=== PATIENT | male | born 1945 | race Caucasian/White ===

== ENCOUNTER → 2017-05-02 | Outpatient (CLI) | payer OTHER ==
[2015-10-12 19:05] VITALS: BP 132/81
--- NOTE | 2017-05-02 12:37 | RAD ---
Examination: Cervical spine, three views History: Left arm weakness Findings: AP, lateral and open-mouth odontoid views demonstrate disc narrowing at several levels. The re is a prominent posterior osteophyte at C3-4. There is minimal anterior listhesis at C4-5-6. Extens johanny facet osteoarthritis is present. The odontoid appears normal. Impression: Degenerative disc disease and spondylosis especially C3-4. Minimal malalignment at levels described consistent with advanced degenerative facet arthropathy. No acute features demonstrated. Reported By:
== END ==
LOC: RAD 11:07
PROVIDERS: ATTEND Nurse Practitioner Family
DX: M50.31 Other cervical disc degeneration, high cervical region (principal)
CPT/HCPCS: 72040

== ENCOUNTER → 2017-05-16 | Outpatient (CLI) | payer OTHER ==
[2015-10-12 19:05] VITALS: BP 132/81
--- NOTE | 2017-05-16 11:51 | MRI ---
STUDY: MRI OF THE CERVICAL SPINE HISTORY: Cervical disc degeneration. Neck pain that radiates into right arm. Comparison: Cervical spine radiographs from May 02, 2017. Technique: An MRI of the cervical spine including sagittal T1, T2, and T2 STIR, axial T1, and T2 FSE images was performed using standard departmental protocol. Findings: Sagittal images: Visualized portions of the posterior fossa are within normal limits.The craniocervical junction is un remarkable.Vertebral body heights and alignment are within normal limits.Marrow signal is age-appropr iate.There is no evidence for fracture or significant bone marrow edema. There is multilevel degenera tive disc disease and chronic degenerative endplate change. There is no significant prevertebral soft tissue swelling. The surrounding paraspinal soft tissues are unremarkable. There is no evidence of c ord compression. No intrinsic signal abnormalities are identified in the spinal cord itself. Axial images: C2 -- C3: Normal. C3 -- C4: There is a posterior disc osteophyte complex and mild bilateral uncovertebral osteophyte fo rmation. This results in moderate spinal stenosis. There is mild right neural foraminal stenosis. Lef t neural foramen is adequate. C4 -- C5: There is a posterior disc osteophyte complex and mild bilateral uncovertebral osteophyte fo rmation. This results in mild central canal stenosis. The neural foramina are adequate. C5 -- C6: There is minimal disc osteophyte complex and bilateral uncovertebral osteophyte formation. The central canal and neural foramina are adequate. C6 -- C7: There is minimal disc osteophyte complex and bilateral uncovertebral osteophyte formation. The central canal and neural foramina are adequate. C7 -- T1: Normal. IMPRESSION: 1. Multilevel cervical spondylosis, most notable at C3/4. 2. Moderate spinal stenosis at C3/4. 3. Mild spinal stenosis at C4/5. Reported By:
== END | disposition home or self-care (01) ==
LOC: RAD 09:02
PROVIDERS: ATTEND Nurse Practitioner Family
DX: M50.30 Other cervical disc degeneration, unspecified cervical region (principal); M47.892 Other spondylosis, cervical region; M48.02 Spinal stenosis, cervical region
CPT/HCPCS: 72141

== ENCOUNTER → 2017-07-25 | Outpatient (CLI) | payer OTHER ==
[2015-10-12 19:05] VITALS: BP 132/81
--- NOTE | 2017-07-25 10:47 | RAD ---
Indication: Cough and shortness of breath Exam: PA and lateral Comparison: 05/14/2014 Findings: The heart is normal. The pulmonary vessels are normal. The lungs are mildly hyperinflated. No consolidation or effusion is seen. The bones are intact. Impression: Stable chronic changes with no acute abnormality seen. Reported By:
--- NOTE | 2017-07-25 10:49 | RAD ---
Indication: Back pain Exam: Thoracic spine series Technique: AP and lateral views Findings: There is mild disc space narrowing throughout the thoracic spine with mild marginal osteoph ytes along the mid to lower thoracic region. There are several mild wedge compression deformities sca ttered along the mid to lower thoracic region with no displaced or retropulsed fragments. The bones a re osteopenic. The pedicles are intact. Impression: Several mild compression deformities scattered along the mid to lower thoracic region which are proba domo chronic. If the patient is persistently symptomatic in the area , suggest MRI or bone scan correl ation. Moderate degenerative disc changes throughout the mid and lower thoracic spine. Osteopenia. Reported By:
== END ==
LOC: RAD 10:06
PROVIDERS: ATTEND Internal Medicine
DX: J20.9 Acute bronchitis, unspecified (principal); M54.6 Pain in thoracic spine; M85.88 Other specified disorders of bone density and structure, other site
CPT/HCPCS: 71046; 72072

== ENCOUNTER 2022-04-12 09:47 | Observation (INO) ==
[2022-04-12] MEDS ORDERED: NS 1,000 ML IV 1,000 ML ONE (10:01)
[2022-04-12] MEDS ORDERED: NS 1,000 ML IV 1,000 ML IV ONE (10:11)
--- NOTE | 2022-04-12 10:11 | DR.SOBA ---
HPI Time Seen Time Seen by Provider: 04/12/22 10:10 HPI Comment HPI Comment: PATIENT IS 77YR OLD MALE WITH HISTORY OF DM, HTN AND COPD AND CHF AND CAD IN ER WITH COVID-19 Coronavirus risk:travel/contact w/high risk person: No Has patient experienced Coronavirus symptoms: No PMH PMH Past Medical History: CHF, COPD, Coronary Artery Disease, Diabetes, Dyslipidemia and Hypertension Past Surgical History: Yes Surgical History: CABG/Valve Surgery and Ortho Surgery Family History Family Medical History: Diabetes Mellitus, Cancer, [place], Coronary Artery Disease, Heart Failure and Hypertension Social History Do you use any recreational Drugs:: No Travel Risk Coronavirus risk:travel/contact w/high risk person: No Has patient experienced Coronavirus symptoms: No PE Vital Signs Vitals: Temperature 97.7 F Pulse Rate 62 Respiratory Rate 15 Blood Pressure [Right Arm] 127/60 Blood Pressure 158/72 O2 Sat by Pulse Oximetry 94 ROR Labs Reviewed Result Diagrams: 04/15/22 04:20 04/15/22 04:20 Laboratory: WBC 7.2 X10^3/uL (3.6-10.0) 04/12/22 10:08 RBC 3.37 X10^6/uL (4.7-6.0) L 04/12/22 10:08 Hgb 9.6 g/dL (13.5-18.0) L 04/12/22 10:08 Hct 28.6 % (42.0-54.0) L 04/12/22 10:08 MCV 84.8 fL (80.0-100.0) 04/12/22 10:08 MCH 28.6 pg (27.0-34.0) 04/12/22 10:08 MCHC 33.7 g/dL (33.0-35.0) 04/12/22 10:08 RDW 15.7 % (11.6-16.5) 04/12/22 10:08 Plt Count 341 X10^3/uL (150.0-450.0) 04/12/22 10:08 MPV 7.6 fL (7.4-11.0) 04/12/22 10:08 Neut % (Auto) 48.5 % (42.0-75.0) 04/12/22 10:08 Lymph % (Auto) 39.8 % (21.0-51.0) 04/12/22 10:08 Runnels % (Auto) 6.6 % (0.0-13.0) 04/12/22 10:08 Eos % (Auto) 3.8 % (0.9-2.9) H 04/12/22 10:08 Baso % (Auto) 1.3 % (0.2-1.0) H 04/12/22 10:08 Neut # (Auto) 3.5 x10^3/uL (2.2-4.8) 04/12/22 10:08 Lymph # (Auto) 2.9 X10^3/uL (1.3-2.9) 04/12/22 10:08 Runnels # (Auto) 0.5 x10^3/uL (0.3-0.8) 04/12/22 10:08 Eos # (Auto) 0.3 x10^3/uL (0.0-0.2) H 04/12/22 10:08 Baso # (Auto) 0.1 X10^3/uL (0.0-0.1) 04/12/22 10:08 Absolute Nucleated RBC 0.2 /100WBC 04/12/22 10:08 Sample Site Rbra 04/12/22 13:25 ABG pH 7.460 (7.35-7.45) H 04/12/22 13:25 ABG pCO2 39.0 mmHg (35.0-45.0) 04/12/22 13:25 ABG pO2 65.0 mmHg (80.0-100.0) L 04/12/22 13:25 ABG HCO3 27.7 mmol/L (22-26) H 04/12/22 13:25 ABG O2 Saturation 94.0 % (90-100) 04/12/22 13:25 ABG Base Excess 3.7 mmol/L (-2.0-2.0) H 04/12/22 13:25 Theo Test N/a 04/12/22 13:25 A-a Gradient 36.0 mmHg 04/12/22 13:25 FiO2 21.0 04/12/22 13:25 Blood Gas Comments Pt renu well eb 04/12/22 13:25 Sodium 137 mmol/L (136-145) 04/12/22 10:08 Corrected Sodium 139 mmol/L (136-145) 04/12/22 10:08 Potassium 4.4 mmol/L (3.5-5.1) 04/12/22 10:08 Chloride 100 mmol/L (98-107) 04/12/22 10:08 Carbon Dioxide 26.5 mmol/L (21-32) 04/12/22 10:08 BUN 18 mg/dL (7-18) 04/12/22 10:08 Creatinine 1.65 mg/dL (0.70-1.30) H 04/12/22 10:08 Est GFR (MDRD) Af Amer 52 (>60) L 04/12/22 10:08 Est GFR (MDRD) Non-Af 43 (>60) L 04/12/22 10:08 Glucose 188 mg/dL (65-99) H 04/12/22 10:08 Calcium 8.8 mg/dL (8.5-10.1) 04/12/22 10:08 Corrected Calcium TNP 04/12/22 10:08 Total Bilirubin 0.80 mg/dL (0.2-1.0) 04/12/22 10:08 AST 28 Units/L (15-37) 04/12/22 10:08 ALT 27 Units/L (12-78) 04/12/22 10:08 Alkaline Phosphatase 54 Units/L (46-116) 04/12/22 10:08 Creatine Kinase 147 Units/L (39-308) 04/12/22 10:08 Troponin I High Sens 16.7 ng/L (4.0-60.0) 04/12/22 10:08 B-Natriuretic Peptide 326 pg/mL (0-79) H 04/12/22 10:08 Total Protein 7.1 g/dL (6.4-8.2) 04/12/22 10:08 Albumin 3.9 g/dL (3.4-5.0) 04/12/22 10:08 Globulin 3.2 g/dL (2.5-4.5) 04/12/22 10:08 Albumin/Globulin Ratio 1.2 Ratio (1.1-2.1) 04/12/22 10:08 Specimen Type Clean catch urine 04/12/22 12: Urine Color Yellow (YELLOW) 04/12/22 12:21 Urine Appearance Clear (CLEAR) 04/12/22 12:21 Urine pH 8.0 (5.0 - 8.0) 04/12/22 12:21 Ur Specific Rufus 1.015 (1.000-1.030) 04/12/22 12:21 Urine Protein 2+ (NEGATIVE) 04/12/22 12:21 Urine Glucose (UA) Negative (NEGATIVE) 04/12/22 12:21 Urine Ketones Negative (NEGATIVE) 04/12/22 12:21 Urine Blood Negative (NEGATIVE) 04/12/22 12:21 Urine Nitrite Negative (NEGATIVE) 04/12/22 12:21 Urine Bilirubin Negative (NEGATIVE) 04/12/22 12:21 Urine Urobilinogen Normal (NORMAL) 04/12/22 12:21 Ur Leukocyte Esterase Negative (NEGATIVE) 04/12/22 12:21 Urine RBC 0-2 /HPF (0-3) 04/12/22 12:21 Urine WBC 0-2 /HPF (0-5) 04/12/22 12:21 Ur Squamous Epith Cells Rare /HPF (NEGATIVE) 04/12/22 12:21 Urine Bacteria Negative /HPF (NEGATIVE) 04/12/22 12:21 Ur Culture Indicated? No/not indicated 04/12/22 12:21 SARS-CoV-2 (PCR) Positive (NEGATIVE) A 04/12/22 11:55 Influenza Type A (PCR) Negative (NEGATIVE) 04/12/22 11:55 Influenza Type B (PCR) Negative (NEGATIVE) 04/12/22 11:55 RSV (PCR) Negative (NEGATIVE) 04/12/22 11:55 Opioid Opioid Risk Tool Age (Narayan box if 16-45): No History of Preadolescent Sexual Abuse: No Total: 0 Total Score Risk Category: Low Risk Copyright: Ag [place] predicting aberrant behaviors Discharge Plan Discharge Plan Patient Disposition: 09 ADMITTED INPATIENT Condition: Stable Orders to Discharge Patient Discharge Orders: Discharge (Routine); Ordered 04/15/22 Ordered By: YESENIA SINGER
[2022-04-12 10:13] VITALS: BMI 23.1
--- NOTE | 2022-04-12 10:22 | EKG ---
Test Reason : CHEST PAIN Blood Pressure : */* mmHG Vent. Rate : 61 BPM Atrial Rate : 61 BPM P-R Int : 176 ms QRS Dur : 98 ms QT Int : 418 ms P-R-T Axes : 69 38 69 degrees QTc Int : 420 ms Sinus bradycardia with occasional premature ventricular complexes Otherwise normal ECG When compared with ECG of 10-MAR-2022 16:31, Vent. rate has decreased BY 30 BPM Confirmed by Keyshawn Irwin ([id number]) on 04/12/2022 10:46:23 AM Referred By: Confirmed By: Keyshawn Irwin
[2022-04-12 10:23] LABS: BASOPHILS # (AUTO) 0.1 X10^3/uL (0.0-0.1); BASOPHILS % (AUTO) 1.3 % (0.2-1.0); EOSINOPHILS # (AUTO) 0.3 x10^3/uL (0.0-0.2); EOSINOPHILS % (AUTO) 3.8 % (0.9-2.9); HEMATOCRIT 28.6 % (42.0-54.0); HEMOGLOBIN 9.6 g/dL (13.5-18.0); LYMPHOCYTES # (AUTO) 2.9 X10^3/uL (1.3-2.9); LYMPHOCYTES % (AUTO) 39.8 % (21.0-51.0); MEAN CORPUSCULAR HEMOGLOBIN 28.6 pg (27.0-34.0); MEAN CORPUSCULAR HGB CONC 33.7 g/dL (33.0-35.0); MEAN CORPUSCULAR VOLUME 84.8 fL (80.0-100.0); MEAN PLATELET VOLUME 7.6 fL (7.4-11.0); MONOCYTES # (AUTO) 0.5 x10^3/uL (0.3-0.8); MONOCYTES % (AUTO) 6.6 % (0.0-13.0); NEUTROPHILS # (AUTO) 3.5 x10^3/uL (2.2-4.8); NEUTROPHILS % (AUTO) 48.5 % (42.0-75.0); RED BLOOD COUNT 3.37 X10^6/uL (4.7-6.0); RED CELL DISTRIBUTION WIDTH 15.7 % (11.6-16.5); WHITE BLOOD COUNT 7.2 X10^3/uL (3.6-10.0)
[2022-04-12 10:31] LABS: ALANINE AMINOTRANSFERASE 27 Units/L (12-78); ALBUMIN 3.9 g/dL (3.4-5.0); ALKALINE PHOSPHATASE 54 Units/L (46-116); ASPARTATE AMINO TRANSFERASE 28 Units/L (15-37); BLOOD UREA NITROGEN 18 mg/dL (7-18); CALCIUM 8.8 mg/dL (8.5-10.1); CARBON DIOXIDE 26.5 mmol/L (21-32); CHLORIDE 100 mmol/L (98-107); COR NA(FOR HYPERGLY) 139 mmol/L (136-145); CREATININE 1.65 mg/dL (0.70-1.30); SODIUM 137 mmol/L (136-145); TOTAL PROTEIN 7.1 g/dL (6.4-8.2); eGFR NON BLACK RACES 43 (>60)
--- NOTE | 2022-04-12 11:20 | RAD ---
HISTORYSOBSTUDYAP chestCOMPARISONB[facility] 2021FINDINGSHeart size normal with pulmonary hyperaeration and no evidence for infiltrate, pneumonia or CHF. Sternal wires are present, many of which are broken with no significant fragment displacement.IMPRESSIONNo interval change or acute findings. Suspect COPD.Electronically signed by: IRIS BULLOCK (Apr 12, 2022 11:18:26)
[2022-04-12 12:36] LABS: BILIRUBIN,URINE NEGATIVE (NEGATIVE); BLOOD/HEMOGLOBIN,URINE NEGATIVE (NEGATIVE); GLUCOSE, URINE NEGATIVE (NEGATIVE); KETONES,URINE NEGATIVE (NEGATIVE); LEUKOCYTE ESTERASE ,URINE NEGATIVE (NEGATIVE); NITRITES,URINE NEGATIVE (NEGATIVE); PROTEIN,URINE 2+ (NEGATIVE); UROBILINOGEN,URINE NORMAL (NORMAL)
[2022-04-12 12:45] LABS: APPEARANCE,URINE CLEAR (CLEAR); BACTERIA,URINE NEGATIVE /HPF (NEGATIVE); COLOR,URINE YELLOW (YELLOW); RBC,URINE 0-2 /HPF (0-3); SQUAMOUS EPITHELIAL CELL,UR RARE /HPF (NEGATIVE)
[2022-04-12] MEDS ORDERED: SOLU-Medrol 125 MG VIAL IVP ONE (12:59)
[2022-04-12] MEDS ORDERED: ROCEPHIN VIAL 1 GRAM 1 G in NS 100 ML IV 100 ML IV ONE (13:01)
[2022-04-12] MEDS ORDERED: SOLU-Medrol 125 MG VIAL ONE (13:04)
[2022-04-12] MEDS ORDERED: NS 100 ML IV 100 ML ONE (13:04)
[2022-04-12] MEDS ORDERED: ROCEPHIN VIAL 1 GRAM ONE (13:04)
[2022-04-12 13:28] LABS: ABG BASE EXCESS 3.7 mmol/L (-2.0-2.0); ABG HCO3 27.7 mmol/L (22-26)
[2022-04-12] MEDS ORDERED: BEBTELOVIMAB INJ IVP ONE (14:12)
[2022-04-12] MEDS: ZITHROMAX INJ 500 MG VIAL 500 MG in NS 250 ML IV 250 ML IV SCH (17:20)
[2022-04-12] MEDS: ROBITUSSIN DM PO SCH ×2 (17:20→21:05)
[2022-04-12] MEDS: COZAAR PO SCH (17:22)
[2022-04-12] MEDS: PLAVIX PO SCH (17:23)
[2022-04-12] MEDS: ZETIA TAB 10 MG PO SCH (17:23)
[2022-04-12] MEDS: TOPROL XL PO SCH (17:23)
[2022-04-12] MEDS: NORVASC TAB 5 MG PO SCH (17:23)
[2022-04-12] MEDS: NovoLIN R (or HumuLIN R) SUBCUT PRN ×2 (18:25→21:06)
[2022-04-12] MEDS: SNACK - Diabetic Appropriate PO SCH ×2 (20:04)
[2022-04-12] MEDS: DUONEB 0.5 MG/3 MG (3 mL) NEB SCH (21:00)
[2022-04-12] MEDS: PULMICORT NEB TX 0.5 MG NEB SCH (21:00)
[2022-04-12] MEDS: AMARYL TAB 4 MG PO SCH (21:04)
[2022-04-12] MEDS: LIPITOR TAB 80 MG PO SCH (21:05)
[2022-04-12] MEDS: PROTONIX INJ 40 MG VIAL IVP SCH (21:05)
[2022-04-13 05:20] LABS: BASOPHILS % (AUTO) 0.3 % (0.2-1.0); HEMOGLOBIN 8.7 g/dL (13.5-18.0); LYMPHOCYTES # (AUTO) 1.5 X10^3/uL (1.3-2.9); LYMPHOCYTES % (AUTO) 28.5 % (21.0-51.0); MEAN CORPUSCULAR HEMOGLOBIN 29.2 pg (27.0-34.0); MEAN CORPUSCULAR HGB CONC 34.7 g/dL (33.0-35.0); MEAN CORPUSCULAR VOLUME 84.2 fL (80.0-100.0); MEAN PLATELET VOLUME 7.5 fL (7.4-11.0); MONOCYTES # (AUTO) 0.2 x10^3/uL (0.3-0.8); MONOCYTES % (AUTO) 4.6 % (0.0-13.0); NEUTROPHILS # (AUTO) 3.4 x10^3/uL (2.2-4.8); NEUTROPHILS % (AUTO) 66.6 % (42.0-75.0); RED BLOOD COUNT 2.96 X10^6/uL (4.7-6.0); RED CELL DISTRIBUTION WIDTH 15.7 % (11.6-16.5); WHITE BLOOD COUNT 5.1 X10^3/uL (3.6-10.0)
[2022-04-13 05:32] LABS: ALANINE AMINOTRANSFERASE 21 Units/L (12-78); ALBUMIN 3.3 g/dL (3.4-5.0); ALKALINE PHOSPHATASE 48 Units/L (46-116); ASPARTATE AMINO TRANSFERASE 21 Units/L (15-37); BLOOD UREA NITROGEN 20 mg/dL (7-18); CARBON DIOXIDE 27.1 mmol/L (21-32); CHLORIDE 104 mmol/L (98-107); COR CA(FOR HYPOALB) 8.6 mg/dL (8.5-10.1); COR NA(FOR HYPERGLY) 140 mmol/L (136-145); SODIUM 138 mmol/L (136-145); TOTAL PROTEIN 6.3 g/dL (6.4-8.2); eGFR NON BLACK RACES > 60 (>60)
[2022-04-13] MEDS: PULMICORT NEB TX 0.5 MG NEB SCH ×2 (08:28→20:20)
[2022-04-13] MEDS: DUONEB 0.5 MG/3 MG (3 mL) NEB SCH ×2 (08:28→20:20)
[2022-04-13] MEDS ORDERED: TOPROL XL PO ONE (08:38)
[2022-04-13] MEDS: ZITHROMAX INJ 500 MG VIAL 500 MG in NS 250 ML IV 250 ML IV SCH (08:44)
[2022-04-13] MEDS: ROBITUSSIN DM PO SCH ×4 (08:45→21:27)
[2022-04-13] MEDS: PROTONIX INJ 40 MG VIAL IVP SCH ×2 (08:45→21:27)
[2022-04-13] MEDS: COZAAR PO SCH ×2 (08:46→08:48)
[2022-04-13] MEDS: ASPIRIN 81 MG CHEWTAB PO SCH (08:46)
[2022-04-13] MEDS: ZETIA TAB 10 MG PO SCH (08:46)
[2022-04-13] MEDS: NORVASC TAB 5 MG PO SCH (08:49)
[2022-04-13] MEDS: TOPROL XL PO SCH (08:49)
[2022-04-13] MEDS: AMARYL TAB 4 MG PO SCH ×2 (08:50→21:27)
[2022-04-13] MEDS: PLAVIX PO SCH (08:53)
[2022-04-13] MEDS ORDERED: NS 100 ML IV 100 ML with VENOFER 400 MG IV NR ×2 (11:00)
--- NOTE | 2022-04-13 17:14 | DR.H&P ---
H&P - History & Physical for Day of: H&P Date: 04/12/22 - Chief Complaint Chief Complaint: BLACK TARRY STOOL, SHORTNESS BREATH - History of Present Illness History of Present Illness: PT IS 77 WM, ER ADMISSION AFTER PRESENTING WITH CO SOB, WORSE ON EXERTION AND BLACK STOOL. PT REPORTS HE HAS HAD INCREASE FREQUENCY OF LOOSE DARK STOOL AND FEELS GENERALIZED WEAKNESS. PT HAS PMH OF CAD WITH CAGB, HTN, DM, COPD. PT WAS COVID + IN ER, PT REPORTS HE HAD FLU LIKE ILLNESS AT [facility]. DENIES ANY CCC OR FEVER AT THIS TIME. PT ADMITTED FOR TREATMENT OF ACUTE ILLNESS. - Past Medical History Past Medical History: Coronary Artery Disease, Hypertension, Dyslipidemia, Diabetes, COPD, CHF - Past Surgical History Surgical History: Angioplasty/Stents, CABG/Valve Surgery, Ortho Surgery - Family History Family Medical History: Diabetes Mellitus, Cancer, [place], Coronary Artery Disease, Heart Failure, Hypertension - Social History Does patient currently use any type of tobacco product: No Have you used tobacco products in the last 12 months: No Does any household member use tobacco: No Alcohol Use: Occasionally Drug Use: None - Medications Home Medications: No Known Drug Allergies Allergy (Verified 03/13/19 20:04) CONTINUE taking the following medications amlodipine 5 mg tablet 1 tab PO QDAY 04/12/22 [History] aspirin 81 mg chewable tablet 81 mg PO DAILY 04/12/22 [History] atorvastatin 80 mg tablet 1 tab PO QPM 04/12/22 [History] clopidogrel 75 mg tablet 1 tab PO QDAY 04/12/22 [History] ezetimibe 10 mg tablet 1 tab PO QDAY 04/12/22 [History] fenofibrate nanocrystallized 145 mg tablet 1 tab PO QDAY 04/12/22 [History] glimepiride 2 mg tablet 1 tab PO BID 04/12/22 [History] losartan 100 mg tablet 1 tab PO QDAY 04/12/22 [History] metoprolol succinate 100 mg tablet,extended release 24 hr 1 tab PO QDAY 04/12/22 [History] pantoprazole 40 mg tablet,delayed release 1 tab PO QDAY 04/12/22 [History] - Review of Systems Constitutional: Weakness, Malaise Eyes: No Symptoms Reported ENT: No Symptoms Reported Respiratory: Shortness of Breath, SOB with Excertion Cardiovascular: No Symptoms Reported Gastrointestinal: Abdominal Pain, Diarrhea, Melena Genitourinary: No Symptoms Reported Musculoskeletal: Back Pain Skin: No Symptoms Reported Neurological: No Symptoms Reported - Physical Exam Vital Signs: Temperature 97.8 F Pulse Rate [Left Brachial] 60 Pulse Rate 84 Respiratory Rate 20 Blood Pressure [Right Arm] 128/60 Blood Pressure 163/74 O2 Sat by Pulse Oximetry 92 Oriented: Normal Eyes: Normal Ear: Normal Nose: Normal Throat: Normal Respiratory: RLL Diminished, LLL Diminished Cardiovascular: Normal : Normal Auscultation: Bowel Sounds: Normal Palpation: Normal Tenderness: Normal Skin: Decreased Turgur Musculoskeletal: Back:Lumbar Psychiatric: Anxiety Affect: Anxious Speech Pattern: Clear, Appropriate - Assessment/Plan (1) GI bleed Status: Acute Plan: ADMIT, RESP THERAPY AND SUPPLEMENTAL O2 PRN. OCCULT STOOL, GI CONSULT. BP CONTROL, STRICT I&OS. PPI THERAPY WITH PROTONIX BID. VERIFY HOME MEDICATION (2) Shortness of breath Status: Acute (3) CHF (congestive heart failure) Qualifiers: Heart failure type: unspecified Heart failure chronicity: chronic Qualified Code(s): I50.9 - Heart failure, unspecified Status: Acute (4) COPD (chronic obstructive pulmonary disease) Qualifiers: COPD type: unspecified COPD Qualified Code(s): J44.9 - Chronic obstructive pulmonary disease, unspecified Status: Acute (5) S/P CABG (coronary artery bypass graft) Status: Acute (6) Weakness Status: Acute (7) COVID-19 virus infection Status: Acute (8) CAD (coronary artery disease) Qualifiers: Coronary Disease-Associated Artery/Lesion type: [place] artery [place] vs. transplanted heart: [place] heart Associated angina: with stable angina Qualified Code(s): I25.118 - Atherosclerotic heart disease of [place] coronary artery with other forms of angina pectoris Status: Acute - Allergies Allergies/Adverse Reactions: Allergies Allergy/AdvReac Type Severity Reaction Status Date / Time No Known Drug Allergies Allergy Verified 03/13/19 20:04
[2022-04-13] MEDS: SNACK - Diabetic Appropriate PO SCH ×2 (20:25→20:26)
[2022-04-13] MEDS: NovoLIN R (or HumuLIN R) SUBCUT PRN (21:27)
[2022-04-13] MEDS: LIPITOR TAB 80 MG PO SCH (21:27)
[2022-04-14 05:00] LABS: HEMOGLOBIN 8.4 g/dL (13.5-18.0); MEAN CORPUSCULAR VOLUME 84.5 fL (80.0-100.0)
[2022-04-14 05:03] LABS: BASOPHILS # (AUTO) 0.1 X10^3/uL (0.0-0.1); BASOPHILS % (AUTO) 0.9 % (0.2-1.0); EOSINOPHILS # (AUTO) 0.1 x10^3/uL (0.0-0.2); EOSINOPHILS % (AUTO) 1.3 % (0.9-2.9); HEMATOCRIT 25.1 % (42.0-54.0); MEAN CORPUSCULAR HEMOGLOBIN 28.2 pg (27.0-34.0); MEAN CORPUSCULAR HGB CONC 33.4 g/dL (33.0-35.0); MEAN PLATELET VOLUME 7.7 fL (7.4-11.0); MONOCYTES # (AUTO) 0.6 x10^3/uL (0.3-0.8); MONOCYTES % (AUTO) 8.5 % (0.0-13.0); NEUTROPHILS # (AUTO) 4.2 x10^3/uL (2.2-4.8); NEUTROPHILS % (AUTO) 60.3 % (42.0-75.0); RED BLOOD COUNT 2.97 X10^6/uL (4.7-6.0); RED CELL DISTRIBUTION WIDTH 15.9 % (11.6-16.5)
[2022-04-14 05:08] LABS: ALANINE AMINOTRANSFERASE 19 Units/L (12-78); ALBUMIN 3.2 g/dL (3.4-5.0); ALKALINE PHOSPHATASE 45 Units/L (46-116); ASPARTATE AMINO TRANSFERASE 18 Units/L (15-37); BLOOD UREA NITROGEN 18 mg/dL (7-18); CALCIUM 8.1 mg/dL (8.5-10.1); CARBON DIOXIDE 27.7 mmol/L (21-32); CHLORIDE 107 mmol/L (98-107); COR CA(FOR HYPOALB) 8.7 mg/dL (8.5-10.1); CREATININE 1.12 mg/dL (0.70-1.30); SODIUM 141 mmol/L (136-145); eGFR NON BLACK RACES > 60 (>60)
[2022-04-14] MEDS ORDERED: TOPROL XL PO ONE (08:11)
[2022-04-14] MEDS: PULMICORT NEB TX 0.5 MG NEB SCH ×2 (08:35→20:10)
[2022-04-14] MEDS: DUONEB 0.5 MG/3 MG (3 mL) NEB SCH ×2 (08:35→20:10)
[2022-04-14] MEDS: PLAVIX PO SCH (08:59)
[2022-04-14] MEDS: PROTONIX INJ 40 MG VIAL IVP SCH ×2 (08:59→21:27)
[2022-04-14] MEDS: ROBITUSSIN DM PO SCH ×4 (08:59→21:25)
[2022-04-14] MEDS: ASPIRIN 81 MG CHEWTAB PO SCH (08:59)
[2022-04-14] MEDS: ZITHROMAX INJ 500 MG VIAL 500 MG in NS 250 ML IV 250 ML IV SCH (08:59)
[2022-04-14] MEDS: AMARYL TAB 4 MG PO SCH ×2 (09:00→21:26)
[2022-04-14] MEDS: NORVASC TAB 5 MG PO SCH (09:00)
[2022-04-14] MEDS: ZETIA TAB 10 MG PO SCH (09:00)
[2022-04-14] MEDS: COZAAR PO SCH (09:00)
[2022-04-14] MEDS: TOPROL XL PO SCH (09:00)
--- NOTE | 2022-04-14 13:54 | CT ---
HISTORYABD PAIN, GI BLEED, abdominal aortic aneurysmSTUDYCT abdomen pelvis with IV contrastCOMPARISONReport of CT 10/14/2017, images are not availableTECHNIQUEMultiple axial images of the abdomen and pelvis were obtained from the lung bases to the pubic symphysis after the administration of IV contrast. Dose reduction techniques including Automated Exposure Control (AEC) and adjustment of mA and kV were utilized.FINDINGSThe visualized portions of the lung bases suggest mild atelectasis and prominent cardiophrenic fat pads.The liver and spleen display no abnormalities.Gallbladder is contracted and wall thickness cannot be evaluated. No biliary ductal dilation.No pancreatic abnormality is seen.Right adrenal gland appears normal. There is a low-density nodule in the left adrenal gland that measures 1.5 x 0.9 cm. It measures 26 Hounsfield units. It is probably a benign adenoma.Multiple simple cysts are suspected in both kidneys. These measure up to 1.7 cm in diameter. Vascular calcifications are seen in the renal lloyd. No nephrolithiasis or hydronephrosis is seen. Phleboliths are seen in the pelvis. Ureters and bladder appear normal.No bowel abnormalities are seen. Normal appendix is seen.Prostate gland is normal in size. There is mild fatty distention of the inguinal rings.There is a distal abdominal aortic aneurysm that measures 4.9 cm in diameter. Previously it was described as measuring 4.3 cm. Proximal abdominal aorta is mildly prominent as well, measuring 4.0 cm in diameter.Shotty periportal lymph nodes are seen.No free intraperitoneal air or fluid is seen.No acute bony abnormality is seen.IMPRESSION4.9 cm distal abdominal aortic aneurysm is probably increased in size since prior exam in 2018. No evidence of aortic leak is seen.Gallbladder is contracted and wall thickness is not well evaluated. Consider further evaluation with right upper quadrant ultrasound following appropriate fasting.1.5 x 0.9 cm low-density left adrenal nodule is probably a benign adenoma. It is stable since a prior chest CT of 11/29/2020.Electronically signed by: Jose J Oneil (Apr 14, 2022 13:52:23)
[2022-04-14] MEDS: LIPITOR TAB 80 MG PO SCH (21:25)
[2022-04-14] MEDS: SNACK - Diabetic Appropriate PO SCH ×2 (21:41)
[2022-04-15 05:29] LABS: BASOPHILS # (AUTO) 0.1 X10^3/uL (0.0-0.1); EOSINOPHILS # (AUTO) 0.3 x10^3/uL (0.0-0.2); EOSINOPHILS % (AUTO) 4.3 % (0.9-2.9); HEMATOCRIT 25.7 % (42.0-54.0); HEMOGLOBIN 8.8 g/dL (13.5-18.0); LYMPHOCYTES % (AUTO) 33.1 % (21.0-51.0); MEAN CORPUSCULAR HEMOGLOBIN 28.8 pg (27.0-34.0); MEAN CORPUSCULAR HGB CONC 34.4 g/dL (33.0-35.0); MEAN CORPUSCULAR VOLUME 83.7 fL (80.0-100.0); MEAN PLATELET VOLUME 7.7 fL (7.4-11.0); MONOCYTES # (AUTO) 0.6 x10^3/uL (0.3-0.8); NEUTROPHILS # (AUTO) 3.2 x10^3/uL (2.2-4.8); NEUTROPHILS % (AUTO) 52.6 % (42.0-75.0); RED BLOOD COUNT 3.07 X10^6/uL (4.7-6.0); RED CELL DISTRIBUTION WIDTH 15.8 % (11.6-16.5); WHITE BLOOD COUNT 6.1 X10^3/uL (3.6-10.0)
[2022-04-15 05:47] LABS: ALANINE AMINOTRANSFERASE 20 Units/L (12-78); ALBUMIN 3.4 g/dL (3.4-5.0); ALKALINE PHOSPHATASE 49 Units/L (46-116); ASPARTATE AMINO TRANSFERASE 17 Units/L (15-37); BLOOD UREA NITROGEN 14 mg/dL (7-18); CALCIUM 8.3 mg/dL (8.5-10.1); CARBON DIOXIDE 29.2 mmol/L (21-32); CHLORIDE 104 mmol/L (98-107); SODIUM 141 mmol/L (136-145); TOTAL PROTEIN 6.2 g/dL (6.4-8.2); eGFR NON BLACK RACES > 60 (>60)
[2022-04-15] MEDS ORDERED: TOPROL XL PO ONE (07:29)
[2022-04-15] MEDS: PROTONIX INJ 40 MG VIAL IVP SCH (08:03)
[2022-04-15] MEDS: ZITHROMAX INJ 500 MG VIAL 500 MG in NS 250 ML IV 250 ML IV SCH (08:03)
[2022-04-15] MEDS ORDERED: NS 100 ML IV 100 ML ONE (08:05)
[2022-04-15] MEDS ORDERED: NS 100 ML IV 100 ML with VENOFER 400 MG IV NR ×2 (09:00)
[2022-04-15] MEDS: DUONEB 0.5 MG/3 MG (3 mL) NEB SCH (09:23)
[2022-04-15] MEDS: PULMICORT NEB TX 0.5 MG NEB SCH (09:23)
[2022-04-15] MEDS: AMARYL TAB 4 MG PO SCH (11:56)
[2022-04-15] MEDS: TOPROL XL PO SCH (11:56)
[2022-04-15] MEDS: ZETIA TAB 10 MG PO SCH (11:56)
[2022-04-15] MEDS: COZAAR PO SCH (11:57)
[2022-04-15] MEDS: ASPIRIN 81 MG CHEWTAB PO SCH (11:57)
[2022-04-15] MEDS: ROBITUSSIN DM PO SCH (11:57)
[2022-04-15] MEDS: NORVASC TAB 5 MG PO SCH (11:57)
[2022-04-15] MEDS ORDERED: DIPRIVAN VIAL 20 ML ONE (12:19)
[2022-04-15] MEDS ORDERED: NS 500 ML IV 500 ML IV ONE (12:36)
[2022-04-15 14:22] VITALS: BP 131/67
== END 2022-04-15 15:35 | disposition home or self-care (01) ==
LOC: MED/SURG 09:47 → ER 09:47 → MED/SURG 14:53
PROVIDERS: ADMIT Obstetrics & Gynecology Obstetrics; ATTEND Internal Medicine
DX: K92.1 Melena; K20.80 Other esophagitis without bleeding; I71.40 Abdominal aortic aneurysm, without rupture, unspecified; K25.9 Gastric ulcer, unspecified as acute or chronic, without hemorrhage or perforation; J44.9 Chronic obstructive pulmonary disease, unspecified; U07.1 COVID-19; I95.89 Other hypotension; I25.118 Atherosclerotic heart disease of native coronary artery with other forms of angina pectoris; D50.8 Other iron deficiency anemias; E78.2 Mixed hyperlipidemia; R06.02 Shortness of breath; I11.0 Hypertensive heart disease with heart failure; E11.65 Type 2 diabetes mellitus with hyperglycemia; I50.9 Heart failure, unspecified; R10.84 Generalized abdominal pain